=== PATIENT | male | born 1980 | race American Indian/Alaskan Native ===

== ENCOUNTER 2016-06-15 22:41 | Emergency (ER) | payer MEDICARE ==
[2016-06-15 22:55] VITALS: BP 116/81
--- NOTE | 2016-06-16 02:01 | Emergency Department Report ---
ED Fall HPI - General Chief Complaint: Fall Stated Complaint: NECK/BACK PAIN,ARM NUMBNESS Time Seen by Provider: 06/16/16 01:49 Source: patient, family Mode of arrival: Wheelchair - History of Present Illness Initial Comments: 35-year-old male comes to emergency room complaints of headache and neck pain status post fall. Patient is stated that he slipped on the floor at the restaurant several hours ago. After falling complains of headache and neck pain. Patient claims that he has tingling in his upper extremities. Denies any loss of consciousness. Denies any nausea vomiting. MD Complaint: fall -: Gradual, hour(s) (few) Fall From: standing When Fall Occurred: 4-6 hours [employer] Fall Witnessed: yes, by bystander Place Fall Occurred: other (restaurant) Loss of Consciousness: none Prolonged Down Time?: no Symptoms Prior to Fall: none Location: head, neck Severity: moderate Severity scale (0 -10): 3 Quality: dull, aching Context: tripped/slipped Associated Symptoms: headache, neck pain, numbness - Related Data Previous Rx's Medication Instructions Recorded Last Taken Type Baclofen 20 mg PO BID #20 tablet 06/16/16 Unknown Rx Diclofenac Sodium 75 mg PO BID #20 tablet. 06/16/16 Unknown Rx Allergies Allergy/AdvReac Type Severity Reaction Status Date / Time No Known Allergies Allergy Unverified 06/15/16 22:50 ED Review of Systems ROS: Stated complaint: NECK/BACK PAIN,ARM NUMBNESS Other details as noted in HPI Comment: All other systems reviewed and negative Constitutional: denies: chills, fever Eyes: denies: eye pain, eye discharge, vision change ENT: denies: ear pain, throat pain Respiratory: denies: cough, shortness of breath, wheezing Cardiovascular: denies: chest pain, palpitations Endocrine: no symptoms reported Gastrointestinal: denies: abdominal pain, nausea, diarrhea Genitourinary: denies: urgency, dysuria Musculoskeletal: arthralgia, myalgia. denies: back pain, joint swelling Skin: denies: rash, lesions Neurological: headache. denies: weakness, paresthesias Psychiatric: denies: anxiety, depression Hematological/Lymphatic: denies: easy bleeding, easy bruising ED Past Medical Hx - Past Medical History Previous Medical History?: Yes Hx HIV: Yes Additional medical history: hypertyroidism - Surgical History Past Surgical History?: Yes Additional Surgical History: tyroidectomy - Social History Smoking Status: Current Every Day Smoker Substance Use Type: Prescribed - Medications Home Medications: Home Medications Medication Instructions Recorded Confirmed Last Taken Type Baclofen 20 mg PO BID #20 tablet 06/16/16 Unknown Rx Diclofenac Sodium 75 mg PO BID #20 tablet. 06/16/16 Unknown Rx ED Physical Exam - General Limitations: Physical Limitation General appearance: alert, in no apparent distress - Head Head exam: Present: atraumatic, normocephalic - Eye Eye exam: Present: normal appearance - ENT ENT exam: Present: mucous membranes moist - Neck Neck exam: Present: normal inspection, tenderness (bilateral paraspinal c4-c5) - Respiratory Respiratory exam: Present: normal lung sounds bilaterally. Absent: respiratory distress - Cardiovascular Cardiovascular Exam: Present: regular rate, normal rhythm. Absent: systolic murmur, diastolic murmur, rubs, gallop - GI/Abdominal GI/Abdominal exam: Present: soft, normal bowel sounds - Rectal Rectal exam: Present: deferred - Extremities Exam Extremities exam: Present: normal inspection - Back Exam Back exam: Present: normal inspection - Neurological Exam Neurological exam: Present: alert, oriented X3, other (pt. not co-operative doing neuro exam, keep asking for pain meds. claims he has tingling in his fingers and has hard time walking.pt has pre-existing lower back condtion and claims to be " Disable " ) - Psychiatric Psychiatric exam: Present: normal affect, normal mood - Skin Skin exam: Present: warm, dry, intact, normal color. Absent: rash ED Course Vital Signs 06/15/16 22:50 Temperature 98.1 F Pulse Rate 57 L Respiratory 18 Rate Blood Pressure 116/81 Blood Pressure 116/81 [Left] O2 Sat by Pulse 100 Oximetry - Reevaluation(s) Reevaluation #1: Patient claims headache is better after given pain medicines and medicine. Vital signs stable. 06/16/16 02:59 ED Medical Decision Making - Radiology Data Radiology results: report reviewed (no acute fx or abnormalities) Critical care attestation.: If time is entered above; I have spent that time in minutes in the direct care of this critically ill patient, excluding procedure time. ED Disposition Clinical Impression: Head injury, acute Qualifiers: Encounter type: initial encounter Qualified Code(s): S09.90XA - Unspecified injury of head, initial encounter Posterolateral cervical muscle strain Qualifiers: Encounter type: initial encounter Qualified Code(s): S16.1XXA - Strain of muscle, fascia and tendon at neck level, initial encounter Disposition: DISCHARGED TO HOME OR SELFCARE Is pt being admited?: No Does the pt Need Aspirin: No Condition: Good Instructions: Muscle Strain (ED), Minor Head Injury (ED), Cervical Radiculopathy (ED) Prescriptions: Baclofen 20 mg PO BID #20 tablet Diclofenac Sodium 75 mg PO BID #20 tablet.dr Referrals: MARIBEL BARCENAS MD [Primary Care Provider] - 3-5 Days ANTONIA JUARES MD [Staff Physician] - 3-5 Days
--- NOTE | 2016-06-16 02:43 | Cat Scan Report ---
FINAL REPORT PROCEDURE: CT HEAD/BRAIN WO CON TECHNIQUE: Computerized tomography of the head was performed without contrast material. HISTORY: head injury s/p fall COMPARISON: No prior studies are available for comparison. FINDINGS: Skull and scalp: Normal. Paranasal sinuses: Normal. Ventricles and subarachnoid spaces: Normal. Cerebrum: No evidence of hemorrhage, acute infarction or mass . Cerebellum and brainstem: No evidence of hemorrhage, acute infarction or mass. Vasculature: Normal. Comments: None. IMPRESSION: Normal Examination
--- NOTE | 2016-06-16 02:48 | Cat Scan Report ---
FINAL REPORT PROCEDURE: CT CERVICAL SPINE WO CON TECHNIQUE: Computerized tomography of the cervical spine was performed from the skull base to T1 without contrast material. HISTORY: fall, c/o neck pain COMPARISON: No prior studies are available for comparison. FINDINGS: There is straightening of the cervical spine. There are no fractures or malalignments. There is degenerative loss of disc height at C4-C5 and C5-C6. The skull base and the foramen magnum are intact there are no fractures or malalignments. There is no facet dislocation. Prevertebral soft tissues are normal in thickness. IMPRESSION: No significant abnormality.
[2016-06-16] MEDS ORDERED: NORCO 10/325 PO ONE (02:58)
== END 2016-06-16 03:15 | disposition home or self-care (01) ==
LOC: ED 22:41
DX: S09.90XA Unspecified injury of head, initial encounter (principal); S16.1XXA Strain of muscle, fascia and tendon at neck level, initial encounter; E03.9 Hypothyroidism, unspecified; F17.200 Nicotine dependence, unspecified, uncomplicated; W01.0XXA Fall on same level from slipping, tripping and stumbling without subsequent striking against object, initial encounter; Y93.89 Activity, other specified; Y92.511 Restaurant or cafe as the place of occurrence of the external cause; Y99.8 Other external cause status
CPT/HCPCS: 70450; 72125